=== PATIENT | female | born 1990 | race Caucasian/White ===

== ENCOUNTER 2024-12-19 21:45 | Emergency (ER) | payer BC ==
[~2024-12-19] VITALS: Ht 162.5 cm; Wt 98.0 kg
[2024-12-19 23:08] LABS: BASO % 0.4 % (0.0-1.0); EOS # 0.2 10*3/uL (0.0-0.4); EOS % 2.2 % (1.0-4.0); HEMATOCRIT 42.4 % (37.0-47.0); MEAN CELL VOLUME 88.9 fl (81.0-99.0); MEAN CORPUSCULAR HGB 28.9 pg (27.0-31.0); MEAN CORPUSCULAR HGB CONC 32.5 g/dl (33.0-37.0); MEAN PLATELET VOLUME 9.1 fl (9.6-12.3); MONO # 0.8 10*3/uL (0.1-1.0); MONO % 7.6 % (3.0-9.0); NEUT # 6.5 10*3/uL (2.3-7.9); NEUT % 62.4 % (47.0-73.0); PLATELET COUNT AUTOMATED 290 10*3/uL (130-400); RED BLOOD COUNT 4.77 10*6/uL (4.10-5.10); RED CELL DISTRI WIDTH 12.3 % (0-14.5); WHITE BLOOD COUNT 10.4 10*3/uL (4.8-10.8)
[2024-12-19 23:25] LABS: BUN 15 mg/dl (9-23); CHLORIDE 100 mmol/L (98-107); POTASSIUM 3.7 mmol/L (3.4-5.1)
== END 2024-12-20 01:26 | disposition short-term general hospital (02) ==
LOC: ED 21:45
PROVIDERS: Internal Medicine
DX: R20.2 Paresthesia of skin (principal); Z87.891 Personal history of nicotine dependence